=== PATIENT | female | born 1945 | race Caucasian/White ===

== ENCOUNTER 2020-03-08 20:06 | Emergency (ER) | payer MEDICARE, OTHER, SELFPAY ==
[2020-03-08 20:09] VITALS: BP 186/97; PULSE 78; RESP 17; TEMP 36.2; O2SAT 100
[2020-03-08 21:37] LABS: Basophils Absolute Auto 0.1 K/mm3 (0.0-0.1); Basophils Percent Auto 0.9 % (0.2-1.2); Eosinophils Absolute Auto 0.4 K/mm3 (0-0.3); Eosinophils Percent Auto 4.9 % (0-4.4); Hematocrit 37.2 % (37.0-47.0); Hemoglobin 11.8 g/dL (12.0-15.0); Immature Granulocyte Absolute 0.03 K/mm3 (0.00-0.031); Immature Granulocyte Percent A 0.4 % (0-0.5); Lymphocytes Absolute Auto 2.06 K/mm3 (0.9-3.2); Lymphocytes Percent Auto 26.4 % (18.3-44.2); Mean Corpuscular HGB Conc 31.7 g/dl (32-36); Mean Corpuscular Hemoglobin 27.7 pg (26-34); Mean Corpuscular Volume 87.3 fl (80-100); Mean Platelet Volume 10.6 fl (7.4-10.4); Monocytes Absolute Auto 0.5 K/mm3 (0.1-0.6); Monocytes Percent Auto 6.4 % (2.6-8.5); Neutrophils Absolute Auto 4.8 K/mm3 (1.3-6.7); Platelet Count Result 190 k/mm3 (150-375); Red Blood Count 4.26 M/mm3 (4.2-5.4); White Blood Count 7.8 K/mm3 (4.5-10.0)
[2020-03-08 21:44] LABS: INR 1.5; Prothrombin Time 18.1 Seconds (11.1-14.7)
[2020-03-08 21:45] LABS: Partial Thromboplastin Time 34.9 SECONDS (22.3-36.8)
[2020-03-08 21:50] LABS: Alanine Aminotransferase 19 U/L (4-35); Alkaline Phosphatase 114 U/L (38-126); Anion Gap 12.6 mmol/L (7-16); Aspartate Amino Transferase 26 U/L (14-36); Bilirubin,Total 0.1 mg/dL (0.2-1.3); Blood Urea Nitrogen 16 mg/dL (7-17); CRP 1.4 mg/dL (<1.0); Calcium 8.9 mg/dL (8.4-10.2); Carbon Dioxide 24 mmol/L (22-30); Chloride 106 mmol/L (98-107); Estimated CRCL calculation 53 ml/min; Estimated Glomerular Filt Rate > 60; Glucose 114 mg/dL (65-105); Potassium 4.6 mmol/L (3.4-5.0); Sodium 138 mmol/L (137-145)
--- NOTE | 2020-03-08 22:00 | ED.EXTPRO ---
HPI - Extremity Problem General Chief complaint: Extremity Problem,Nontraumatic Stated complaint: I think I have a blood clot in my leg. Time Seen by Provider: 03/08/20 20:18 Source: patient Mode of arrival: ambulatory Limitations: no limitations History of Present Illness HPI Narrative: This patient is a 74 year old female with history DVT, PE who presents for evaluation right foot swelling and redness. PAtient reports history of multiple surgeries to her right foot. She frequently has swelling to her right foot. This morning she noticed redness to her right leg and she noticed it had increased warmth. She states she is concerned she either has a DVT or cellulitis. She currently takes Xarelto 15 mg daily for history of DVt. She denies missing any doses. She denies chest pain or sob. Her PCP is . Related Data Home Medications Medication Instructions Recorded Confirmed furosemide 40 mg PO DAILY 06/28/19 06/28/19 gabapentin 300 mg PO HS 06/28/19 06/28/19 lovastatin 20 mg PO DAILY 06/28/19 06/28/19 metformin 1,000 mg PO BID 06/28/19 06/28/19 rivaroxaban [Xarelto] 20 mg PO DAILY 06/28/19 06/28/19 verapamil 180 mg PO DAILY 06/28/19 06/28/19 lansoprazole [Prevacid] 15 mg PO DAILY 03/08/20 Allergies Allergy/AdvReac Type Severity Reaction Status Date / Time No Known Allergies Allergy Verified 03/08/20 20:19 Review of Systems Review of Systems: All systems reviewed & are unremarkable except as noted in HPI and below Constitutional: Constitutional: Denies chills and Denies fever(s) Cardiovascular: Cardiovascular: Denies chest pain and Denies radiating jaw, neck or arm pain Respiratory: Respiratory: Denies cough and Denies dyspnea Gastrointestinal: Gastrointestinal: Denies abdominal pain and Denies nausea PMFSH Past Medical History Medical History Bunion of great toe Diabetes GERD (gastroesophageal reflux disease) HLD (hyperlipidemia) HTN (hypertension) with goal to be determined Neuropathy No pertinent family history Ovarian cyst Post-menopausal Surgical History Surgical History (Updated 07/03/19 @ 15:11 by DERIC Stout) Hx of cholecystectomy Status post right foot surgery Social History Social History (Updated 07/03/19 @ 15:11 by DERIC Stout) Smoking status: Never smoker Gender identity (if verbalized by the patient): Female Exam Const: General: no acute distress and alert Orientation/consciousness: patient oriented x3 Eyes: EOM: EOMs intact bilaterally Resp: Effort & Inspection: normal respiratory effort Skin: Other: right patchy redness to right lower leg anteriorlly Neuro: General: patient oriented x3 and moves all extremities Extrem: General: edema (right foot) Course Consultations Consultation #1: I notified Dr. Song electrical control assembler for Dr. Mares that patient will be getting outpatient venous doppler and results will be called to them Date: 03/08/20 Time: 22:37 Vital Signs Vital signs: Vital Signs Temperature 97.1 F L 03/08/20 20:09 Pulse Rate 78 03/08/20 20:09 Respiratory Rate 17 03/08/20 20:09 Blood Pressure 186/97 H 03/08/20 20:09 Pulse Oximetry 100 03/08/20 20:09 Temperature 97.1 F L 03/08/20 20:09 Pulse Rate 63 03/08/20 22:31 Respiratory Rate 18 03/08/20 22:31 Blood Pressure 173/84 H 03/08/20 22:31 Pulse Oximetry 99 03/08/20 22:31 MDM - Extremity (Nontraumatic) Lab Data Result diagrams: 03/08/20 21:29 03/08/20 21:29 Labs: Lab Results 03/08/20 03/08/20 03/08/20 Range/Units 21:29 21:29 21:29 WBC 7.8 (4.5-10.0) K/mm3 RBC 4.26 (4.2-5.4) M/mm3 Hgb 11.8 L (12.0-15.0) g/dL Hct 37.2 (37.0-47.0) % MCV 87.3 (80-100) fl MCH 27.7 (26-34) pg MCHC 31.7 L (32-36) g/dl RDW 14.0 (11.5-14.5) % Plt Count 190 (150-375) k/mm3 MPV 10.6 H (7.4-10.4) fl Immature Gran % (Auto) 0.4
[2020-03-08 22:31] VITALS: BP 173/84; PULSE 63; RESP 18; O2SAT 99
== END 2020-03-08 23:10 | disposition home or self-care (01) ==
PROVIDERS: Emergency Provider General Practice; PCP Internal Medicine Endocrinology, Diabetes & Metabolism
DX: L03.115 Cellulitis of right lower limb (principal); Z86.718 Personal history of other venous thrombosis and embolism; Z86.711 Personal history of pulmonary embolism; K21.9 Gastro-esophageal reflux disease without esophagitis; E78.5 Hyperlipidemia, unspecified; I10 Essential (primary) hypertension; E11.40 Type 2 diabetes mellitus with diabetic neuropathy, unspecified; Z79.01 Long term (current) use of anticoagulants; Z79.84 Long term (current) use of oral hypoglycemic drugs
CPT/HCPCS: 36415; 80053; 85025; 85610; 85730; 86140; 99283

== ENCOUNTER 2020-03-09 07:31 | Outpatient (CLI) | payer MEDICARE, OTHER, SELFPAY ==
--- NOTE | ~2020-03-09 | US_ITS ---
EXAMINATION: US venous doppler LE RT DATE: 03/09/2020 08:13 INDICATION: Right lower limb swelling TECHNIQUE: Head scale images without and with compression and Doppler images of the right lower extre mity veins were obtained. COMPARISON: 09/22/2018 FINDINGS: The right common femoral vein, profunda femoral vein, femoral vein, popliteal vein, peronea l trunk, posterior tibial veins, and greater saphenous vein are patent. IMPRESSION: 1. Patent right lower extremity veins. No evidence of deep venous thrombosis. Reviewed, dictated and finalized at location B.
== END 2020-03-09 07:32 | disposition home or self-care (01) ==
LOC: ANHIMG 07:39
PROVIDERS: PCP Internal Medicine Endocrinology, Diabetes & Metabolism; Visit Provider Internal Medicine Endocrinology, Diabetes & Metabolism
DX: M79.89 Other specified soft tissue disorders (principal)
CPT/HCPCS: 93971

== ENCOUNTER 2020-06-17 11:31 | Emergency (ER) | payer MEDICARE, OTHER, SELFPAY ==
--- NOTE | ~2020-06-17 | XR_ITS ---
EXAMINATION: XR ankle RT 2V DATE: 06/17/2020 12:05 INDICATION: Right ankle pain. TECHNIQUE: 2 views of right ankle were obtained. COMPARISON: Right ankle radiographs 06/28/2019 FINDINGS: Bone alignment is normal. Partially visualized is arthrodesis of first metatarsophalangeal joint with instrumentation. There is mild midfoot osteophytes. There are enthesophytes at the posteri or and plantar aspects of calcaneal tuberosity. Ankle soft tissue swelling is noted. IMPRESSION: 1. Mild midfoot osteoarthritis. Reviewed, dictated and finalized at location A. 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
[2020-06-17 11:46] VITALS: BP 139/64; PULSE 83; RESP 16; TEMP 37.2; O2SAT 99
--- NOTE | 2020-06-17 11:48 | ED.SKABFB ---
HPI - Skin/Abscess/Foreign Bdy General Chief complaint: Skin/Abscess/Foreign Body Stated complaint: Possible cellulitus Time Seen by Provider: 06/17/20 11:49 Source: patient Mode of arrival: ambulatory Limitations: no limitations History of Present Illness HPI narrative: Deja Sierra is a 74 yo female with a PMH of GERD, diabetes, anticoagulation, high cholesterol, a fib, who comes to express care for R ankle pain and suspected cellulitis and anterior tibia pain. Tripped on child gate 2 weeks ago and started throbbing yesterday. Reports redness also noticed yesterday Related Data Home Medications Medication Instructions Recorded Confirmed furosemide 40 mg PO DAILY 06/28/19 06/17/20 gabapentin 300 mg PO HS 06/28/19 06/17/20 lovastatin 20 mg PO DAILY 06/28/19 06/17/20 metformin 1,000 mg PO BID 06/28/19 06/17/20 rivaroxaban [Xarelto] 20 mg PO DAILY 06/28/19 06/17/20 verapamil 180 mg PO DAILY 06/28/19 06/17/20 lansoprazole [Prevacid] 15 mg PO DAILY 03/08/20 06/17/20 Allergies Allergy/AdvReac Type Severity Reaction Status Date / Time No Known Allergies Allergy Verified 06/17/20 11:41 Review of Systems Review of Systems: Narrative: CONSTITUTIONAL: Denies fever, chills, sweats. EYES: Denies visual changes, redness, discharge. ENT: Denies rhinorrhea, congestion, sore throat, otalgia. CARDIOVASCULAR: Denies chest pain, palpitations, edema. RESPIRATORY: Denies dyspnea, wheezing, cough GASTROINTESTINAL: Denies abdominal pain, nausea, vomiting, diarrhea. GENITOURINARY: Denies dysuria, hematuria, abnormal discharge SKIN: Denies rash or itching. NEUROLOGIC: Denies numbness, or focal weakness. PSYCHIATRIC: Denies anxiety or depression. R lower extremity point pain lower anterior tibia and redness to R lower leg ankle to knee PMFSH Past Medical History Medical History (Updated 06/17/20 @ 12:27 by Anahi Tinajero, [place]) Bunion of great toe Diabetes GERD (gastroesophageal reflux disease) HLD (hyperlipidemia) HTN (hypertension) with goal to be determined Neuropathy No pertinent family history Ovarian cyst Post-menopausal Surgical History Surgical History Hx of cholecystectomy Status post right foot surgery Social History Social History Smoking status: Never smoker Gender identity (if verbalized by the patient): Female Comments At time of signature, I agree with nursing past medical, surgical, social and family history. There is no relevant family history pertinent to the presenting complaint. Exam Narrative: Exam Narrative: GENERAL: This is a well-nourished, well-developed patient, in mild distress. HEAD: normocephalic, atraumatic. EYES: Sclera clear/white. Vision is grossly intact. EARS: External ears normal, Hearing grossly intact. NOSE: External nose normal without nasal discharge, nares without redness, no rhinorrhea. THROAT: Mucous membranes moist, NECK: Neck supple, CARDIOVASCULAR: Regular rate and rhythm without murmurs, gallops, or rubs. RESPIRATORY: Clear to auscultation. Breath sounds equal bilaterally. No wheezes, rales, or rhonchi. GASTROINTESTINAL: Abdomen soft, SKIN: warm, intact with skin erythema of R lowwer extremity, with mild edema of foot (possibly chronic), 2 + pedal pulses, sensation decreased in lower leg NEURO: awake, alert, and oriented to person, place and time. There were no obvious focal neurologic abnormalities. Steady gait EXTREMITIES: Normal range of motion. BACK: Nontender without deformity Course Course Emergency Course: Patient came to express care with right lower leg erythematous skin, swelling is occurred in the l ast day or 2 X-ray of right lower extremity/ankle: Bone alignment is normal there is arthrodesis of the first metatarsophalangeal joint with instrumentation.Midfoot osteophytes; enthesophytes at posterior and plantar aspect of calcaneal tuberosi
[2020-06-17 11:58] VITALS: BP 139/64; PULSE 83; RESP 16; TEMP 37.2; O2SAT 99
== END 2020-06-17 12:31 | disposition home or self-care (01) ==
PROVIDERS: Emergency Provider Nurse Practitioner; PCP Internal Medicine Endocrinology, Diabetes & Metabolism
DX: L03.115 Cellulitis of right lower limb (principal); K21.9 Gastro-esophageal reflux disease without esophagitis; E78.5 Hyperlipidemia, unspecified; I10 Essential (primary) hypertension; E11.40 Type 2 diabetes mellitus with diabetic neuropathy, unspecified
CPT/HCPCS: 73600; 99213; G0463

== ENCOUNTER 2023-04-26 13:22 | Emergency (ER) | payer MEDICARE, SELFPAY ==
--- NOTE | 2023-04-26 13:23 | ED.LOWEXIN ---
HPI - Extremity Injury (Lower) General Chief Complaint: Extremity Injury, Lower Stated Complaint: Right Foot Irritation Time Seen by Provider: 04/26/23 13:23 Source: patient Mode of arrival: ambulatory Limitations: no limitations History of Present Illness HPI Narrative: Patient is a 77-year-old female who presents with skin tear to right 2nd toe. Patient states she was wearing sandals at her grandson's soccer game and looked down did notice blood to shoe and foot. Patient states when she got home she noticed skin had been pulled off. Patient states she soaked foot in Epsom salt used antibiotic ointment and covered. States she is a diabetic and has neuropathy so has not had any pain. Denies any bleeding since initial injury. Denies any swelling or redness to toe or foot. Related Data Home Medications Medication Instructions Recorded Confirmed furosemide 40 mg tablet 40 mg PO DAILY 06/28/19 06/17/20 gabapentin 300 mg capsule 300 mg PO HS 06/28/19 06/17/20 lovastatin 20 mg tablet 20 mg PO DAILY 06/28/19 06/17/20 metformin 1,000 mg tablet 1,000 mg PO BID 06/28/19 06/17/20 rivaroxaban 20 mg tablet (Xarelto) 20 mg PO DAILY 06/28/19 06/17/20 verapamil 180 mg tablet,extended 180 mg PO DAILY 06/28/19 06/17/20 release omeprazole 20 mg capsule,delayed mg 04/26/23 04/26/23 release Allergies Allergy/AdvReac Type Severity Reaction Status Date / Time No Known Allergies Allergy Verified 04/26/23 13:32 Review of Systems Review of Systems: All systems reviewed & are unremarkable except as noted in HPI and below Constitutional: Constitutional: Denies body ache(s), Denies chills, Denies fatigue, Denies fever(s), Denies headache(s), Denies malaise and Denies weakness Eyes: Eyes: Denies blurry vision, Denies irritation and Denies loss of vision ENT: Denies otalgia, Denies headache(s), Denies nasal discharge, Denies sinus pain and Denies sore throat Cardiovascular: Cardiovascular: Denies chest pain, Denies irregular heart rhythm and Denies dyspnea Respiratory: Respiratory: Denies dyspnea Gastrointestinal: Gastrointestinal: Denies abdominal pain, Denies melena, Denies hematochezia, Denies diarrhea, Denies nausea and Denies vomiting Musculoskeletal: Musculoskeletal: Denies back pain, Denies myalgias and Denies arthralgias Integumentary/Breasts: Skin/Breast: Denies pruritus, Denies rash and Reports wounds Neurologic: Denies headache(s), Denies loss of vision and Denies weakness Psychiatric: Psychiatric: Reports no additional psychiatric complaints Endocrine: Endocrine: Denies fatigue PMFSH Past Medical History Medical History (Updated 04/26/23 @ 13:54 by Maru Summers APRN) Bunion of great toe Diabetes GERD (gastroesophageal reflux disease) HLD (hyperlipidemia) HTN (hypertension) with goal to be determined Neuropathy No pertinent family history Ovarian cyst Post-menopausal Surgical History Surgical History Hx of cholecystectomy Status post right foot surgery Social History Social History Smoking status: Never smoker Gender identity (if verbalized by the patient): Female Comments At time of signature, agree with nursing past medical, surgical, social and family history. There is no relevant family history pertinent to the presenting complaint. Exam Const: General: cooperative, healthy appearing, comfortable, no acute distress and well nourished Nutritional Appearance: well nourished Orientation/consciousness: patient oriented x3 Limitations: no limitations HENMT: Head: normal to inspection, normocephalic and atraumatic Ears: hearing grossly normal bilaterally and external ears normal Face/Nose/Sinus: Normal external nose present, normal facial exam and face symmetric Face and sinus: normal facial exam and face symmetric Mouth: Yes lip normal Eyes: General: appearance normal, both eye
[2023-04-26 13:32] VITALS: BP 135/72; PULSE 88; RESP 16; TEMP 36.4; O2SAT 100
[2023-04-26 13:33] VITALS: BP 135/72; PULSE 88; RESP 16; TEMP 36.4; O2SAT 100
== END 2023-04-26 13:59 | disposition home or self-care (01) ==
PROVIDERS: Emergency Provider Nurse Practitioner Family; PCP Internal Medicine Endocrinology, Diabetes & Metabolism
DX: S91.114A Laceration without foreign body of right lesser toe(s) without damage to nail, initial encounter (principal); X58.XXXA Exposure to other specified factors, initial encounter; K21.9 Gastro-esophageal reflux disease without esophagitis; E78.5 Hyperlipidemia, unspecified; I10 Essential (primary) hypertension; E11.40 Type 2 diabetes mellitus with diabetic neuropathy, unspecified
CPT/HCPCS: 99213; G0463

== ENCOUNTER 2023-11-16 15:01 | Emergency (ER) | payer MEDICARE, SELFPAY ==
--- NOTE | ~2023-11-16 | XR_ITS ---
EXAM: XR wrist RT min 3V DATE: 11/16/2023 15:43 HISTORY: fall, pain to distal radius . COMPARISON: None available. FINDINGS: Decreased mineralization. No fracture or dislocation. No lytic or blastic lesion. Scattere d degenerative changes, moderate at the trapeziometacarpal joint. No erosion or periosteal change. So ft tissues within normal limits. IMPRESSION: No acute osseous finding in the right wrist. Reviewed, dictated and finalized at location K.
--- NOTE | ~2023-11-16 | XR_ITS ---
EXAM: XR elbow RT min 3V DATE: 11/16/2023 15:43 HISTORY: fall today, pain laterally . COMPARISON: None available. FINDINGS: Normal mineralization. No fracture or dislocation. No lytic or blastic lesion. Mild degene rative change at the elbow joint. Mild medial and moderate lateral epicondylar enthesopathy. No erosi on or periosteal change. Mild anterior displacement of the anterior fat pad. IMPRESSION: Small joint effusion, may be secondary to degenerative change or occult radial head fract ure in a patient of this age. Reviewed, dictated and finalized at location K. IMPRESSION: Small joint effusion, may be secondary to degenerative change or oc cult radial head fracture in a patient of this age.
--- NOTE | ~2023-11-16 | XR_ITS ---
EXAM: XR knee RT min 4V DATE: 11/16/2023 15:43 HISTORY: fall today . COMPARISON: None available. FINDINGS: Decreased mineralization. No fracture or dislocation. No lytic or blastic lesion. Mild/mod erate tricompartmental knee arthritis, with chondrocalcinosis. Quadriceps and patellar enthesopathy N o erosion or periosteal change. Lateral soft tissue swelling. IMPRESSION: No acute osseous finding in the right knee. Reviewed, dictated and finalized at location K.
[2023-11-16 15:16] VITALS: BP 122/61; PULSE 70; RESP 16; TEMP 36.6; O2SAT 100
--- NOTE | 2023-11-16 15:31 | ED.FALL ---
HPI - Fall General Chief Complaint: Fall Stated Complaint: right wrist/arm pain,right knee swollen Time Seen by Provider: 11/16/23 15:19 Source: patient and RN notes reviewed Mode of arrival: ambulatory Limitations: no limitations History of Present Illness HPI Narrative: Patient presents today complaining of right wrist pain radiating to the elbow as well as right knee pain and swelling. Patient fell onto outstretched hands approximately 1.5 hours prior to arrival after tripping on some plants outside her home. She currently rates her pain 03/19. She does take Xarelto. She is up-to-date on her tetanus vaccine. Related Data Home Medications Medication Instructions Recorded Confirmed furosemide 40 mg tablet 40 mg PO DAILY 06/28/19 11/16/23 gabapentin 300 mg capsule 300 mg PO HS 06/28/19 11/16/23 lovastatin 20 mg tablet 20 mg PO DAILY 06/28/19 11/16/23 metformin 1,000 mg tablet 1,000 mg PO BID 06/28/19 11/16/23 rivaroxaban 20 mg tablet (Xarelto) 20 mg PO DAILY 06/28/19 11/16/23 verapamil 180 mg tablet,extended 180 mg PO DAILY 06/28/19 11/16/23 release omeprazole 20 mg capsule,delayed 20 mg PO DAILY 04/26/23 11/16/23 release Allergies Allergy/AdvReac Type Severity Reaction Status Date / Time No Known Allergies Allergy Verified 11/16/23 15:04 Review of Systems Review of Systems: CONSTITUTIONAL: Denies body aches, fever, chills, or sweats. EYES: Denies visual changes, redness, or discharge. ENT: Denies rhinorrhea, congestion, sore throat, or otalgia. CARDIOVASCULAR: Denies chest pain, palpitations, or edema. RESPIRATORY: Denies cough or dyspnea. GASTROINTESTINAL: Denies abdominal pain, nausea, vomiting, or diarrhea. GENITOURINARY: Denies dysuria or hematuria. SKIN: Denies rash, itching, or wounds. MUSCULOSKELETAL: + right wrist and elbow pain. Right knee pain NEUROLOGIC: Denies headache, numbness, tingling, or weakness. PSYCH: Denies depression or anxiety. [facility] Past Medical History Medical History (Updated 11/16/23 @ 16:16 by Oriana Morrow, [facility], ) Bunion of great toe Diabetes GERD (gastroesophageal reflux disease) HLD (hyperlipidemia) HTN (hypertension) with goal to be determined Neuropathy No pertinent family history Ovarian cyst Post-menopausal Surgical History Surgical History Hx of cholecystectomy Status post right foot surgery Social History Social History Smoking status: Never smoker Gender identity (if verbalized by the patient): Female Comments At time of signature, I have reviewed and agree with nursing past medical, surgical, social and family history unless otherwise noted. Please see nursing chart for further information. There is no relevant family history pertinent to the presenting complaint Exam Narrative: GENERAL: Well-appearing, well-nourished, and in no acute distress. HEAD: Normocephalic, atraumatic. EYES: EOMI. No redness or drainage. Conjunctivae normal. ENT: Mucous membranes pink and moist. NECK: Normal AROM. CHEST: No respiratory distress. EXTREMITIES: Right wrist: Tenderness to the distal radius. No tenderness to the ulna. No deformity, ecchymosis, or edema noted. Distal sensation intact. Capillary refill. Radial pulse normal. Pain with range of motion noted. Some mild tenderness to the lateral elbow as well. Tenderness and mild to moderate edema of the knee with superficial abrasions to the patella. Distal sensation intact. Capillary refill normal. Full range of motion with mild increased pain. SKIN: Warm, dry, no rash. Capillary refill normal. Normal skin turgor. NEURO: No focal deficits. Alert and oriented x3. Gait steady. PSYCH: Normal affect. No signs of depression or anxiety. Course Course Level of Care: Express Care Visit Vital Signs Vital signs: Vital Signs Temperature 97.9 F 11/16/23 1
== END 2023-11-16 16:20 | disposition home or self-care (01) ==
PROVIDERS: Emergency Provider Nurse Practitioner; PCP Internal Medicine Endocrinology, Diabetes & Metabolism
DX: S42.401A Unspecified fracture of lower end of right humerus, initial encounter for closed fracture (principal); S63.501A Unspecified sprain of right wrist, initial encounter; S80.01XA Contusion of right knee, initial encounter; W18.09XA Striking against other object with subsequent fall, initial encounter; K21.9 Gastro-esophageal reflux disease without esophagitis; E78.5 Hyperlipidemia, unspecified; I10 Essential (primary) hypertension; E11.40 Type 2 diabetes mellitus with diabetic neuropathy, unspecified
CPT/HCPCS: 29105; 73080; 73110; 73564; 99214; A4565; G0463

== ENCOUNTER 2023-11-22 09:53 | Emergency (ER) | payer MEDICARE, SELFPAY ==
[2023-11-22 10:32] VITALS: BP 143/75; PULSE 96; RESP 16; TEMP 36.4; O2SAT 100
--- NOTE | 2023-11-22 11:25 | ED.GENADULT ---
HPI - General Adult General Chief complaint: Skin/Abscess/Foreign Body Stated complaint: Right Knee Pain Source: patient Mode of arrival: ambulatory Limitations: no limitations History of Present Illness HPI narrative: Patient presents for evaluation of right knee pain and swelling. She was evaluated here on 11/16/2023 following a fall. She had x-rays performed at that time and right knee was negative for fracture. She followed up with Orthopedics for questionable occult fracture of the right elbow. Splint was removed at that time. She states she has bruising, pain, redness and swelling in the right knee. She has a hx of DVT and PE and is anticoagulated with xarelto. Denies any SOB. She rates pain in her right knee as anywhere between 7-05/19. She states she did not discuss this Dr Gomez at her follow up because her primary focus was on her right elbow. Related Data Home Medications Medication Instructions Recorded Confirmed furosemide 40 mg tablet 40 mg PO DAILY 06/28/19 11/22/23 gabapentin 300 mg capsule 300 mg PO HS 06/28/19 11/22/23 lovastatin 20 mg tablet 20 mg PO DAILY 06/28/19 11/22/23 metformin 1,000 mg tablet 1,000 mg PO BID 06/28/19 11/22/23 rivaroxaban 20 mg tablet (Xarelto) 20 mg PO DAILY 06/28/19 11/22/23 verapamil 180 mg tablet,extended 180 mg PO DAILY 06/28/19 11/22/23 release omeprazole 20 mg capsule,delayed 20 mg PO DAILY 04/26/23 11/22/23 release Allergies Allergy/AdvReac Type Severity Reaction Status Date / Time No Known Allergies Allergy Verified 11/22/23 10:10 Review of Systems Review of Systems: CONSTITUTIONAL: Denies fever, chills, or sweats. EYES: Denies visual changes, redness, or discharge. ENT: Denies rhinorrhea, congestion, sore throat, or otalgia. CARDIOVASCULAR: Denies chest pain, or palpitations. RESPIRATORY: Denies cough or dyspnea. GASTROINTESTINAL: Denies abdominal pain, nausea, vomiting, or diarrhea. GENITOURINARY: Denies dysuria or hematuria. SKIN: Reports abrasion to right knee. Reports redness to right knee MUSCULOSKELETAL: Reports right elbow and right knee pain. Reports swelling in RLE NEUROLOGIC: Denies headache, numbness, dizziness, or weakness. PSYCHIATRIC: Denies anxiety or depression. [facility] Past Medical History Medical History Bunion of great toe Contusion Diabetes DVT (deep venous thrombosis) GERD (gastroesophageal reflux disease) HLD (hyperlipidemia) HTN (hypertension) with goal to be determined Neuropathy No pertinent family history Ovarian cyst Post-menopausal Pulmonary embolism Surgical History Surgical History Hx of cholecystectomy Status post right foot surgery Family History Family History Mother Family history non-contributory Social History Social History Smoking status: Never smoker Substance use: never Gender identity (if verbalized by the patient): Female Sexual Orientation (if Verbalized by the Patient): Straight or Heterosexual Spiritual care concerns: No Exam Narrative: GENERAL: Well-appearing, well-nourished, and in no acute distress. HEAD: Normocephalic, atraumatic. EYES: PERRLA and EOMI. ENT: Nares clear, no rhinorrhea or epistaxis. Mucous membranes moist. Oropharynx without tonsillar hypertrophy exudate or other lesions. Bilateral TMs pearly arreola nonbulging NECK: Supple. No adenopathy or masses. No carotid bruits or JVD CHEST: Clear to auscultation. No respiratory distress. No wheezes rales or rhonchi HEART: Regular rate and rhythm. No murmur heard. Normal peripheral pulses. ABDOMEN: Soft, nontender, nondistended, normal active bowel sounds. EXTREMITIES: full range of motion of the right knee intact. No crepitus or deformity. There is tenderness in the ant
== END 2023-11-22 11:30 | disposition home or self-care (01) ==
PROVIDERS: Emergency Provider Nurse Practitioner; PCP Internal Medicine Endocrinology, Diabetes & Metabolism
DX: S80.01XA Contusion of right knee, initial encounter (principal); W19.XXXA Unspecified fall, initial encounter; Z86.718 Personal history of other venous thrombosis and embolism; Z86.711 Personal history of pulmonary embolism; E11.40 Type 2 diabetes mellitus with diabetic neuropathy, unspecified; K21.9 Gastro-esophageal reflux disease without esophagitis; I10 Essential (primary) hypertension; Z79.01 Long term (current) use of anticoagulants
CPT/HCPCS: 99213; G0463

== ENCOUNTER 2024-08-18 12:23 | Emergency (ER) | payer MEDICARE, SELFPAY ==
--- NOTE | ~2024-08-18 | XR_ITS ---
HISTORY: pain rt knee generalized x 4 days, no injury COMPARISON: 11/16/2023 TECHNIQUE: 4 views of the right knee were performed FINDINGS: No acute or subacute fracture. Medial and lateral tibiofemoral joint space narrowing is identified with chondrocalcinosis, unchanged from prior. No suprapatellar joint effusion is identified. The infrapatellar joint space is clear. Interval development of a lateral femoral notch sign on lateral view for which MRI examination of the knee is recommended. Typically, this size can represent a tear of the anterior cruciate ligament for which clinical correl ation is needed. IMPRESSION: No acute fracture. Deep lateral femoral notch sign for which MRI examination of the knee is recommended. Reviewed, dictated and finalized at location A. AL MANAGER IMPRESSION: No acute fracture. Deep lateral femoral notch sign for which MRI examination of the knee is recomm ended.
--- NOTE | 2024-08-18 12:26 | ED.LOWEXIN ---
HPI - Extremity Injury (Lower) General Chief Complaint: Extremity Problem,Nontraumatic Stated Complaint: Right Knee Pain Time Seen by Provider: 08/18/24 12:35 Source: patient, RN notes reviewed and old records reviewed Mode of arrival: ambulatory Limitations: no limitations History of Present Illness HPI Narrative: 78-year-old female presents to the [facility] with right knee pain since Thursday. Reports lower aspect of the knee tenderness, tibial plateau area. Patient has no bruising or swelling noted. Denies any injury. Has taken Tylenol Onset (ago): day(s) (4) Related Data Home Medications ?Medication ?Instructions ?Recorded ?Confirmed ?Last Taken ?Type furosemide 40 mg tablet 40 mg PO DAILY 06/28/19 11/22/23 Unknown History gabapentin 300 mg capsule 300 mg PO HS 06/28/19 11/22/23 Unknown History lovastatin 20 mg tablet 20 mg PO DAILY 06/28/19 11/22/23 Unknown History metformin 1,000 mg tablet 1,000 mg PO BID 06/28/19 11/22/23 Unknown History rivaroxaban 20 mg tablet (Xarelto) 20 mg PO DAILY 06/28/19 11/22/23 Unknown History verapamil 180 mg tablet,extended 180 mg PO DAILY 06/28/19 11/22/23 Unknown History release omeprazole 20 mg capsule,delayed 20 mg PO DAILY 04/26/23 11/22/23 Unknown History release clobetasol 0.05 % topical ointment topical 08/18/24 Unknown History ferrous sulfate 325 mg (65 mg mg PO 08/18/24 Unknown History iron) tablet,delayed release Allergies Allergy/AdvReac Type Severity Reaction Status Date / Time No Known Allergies Allergy Verified 11/22/23 10:10 Review of Systems Review of Systems: All systems reviewed & are unremarkable except as noted in HPI and below Constitutional: Constitutional: Reports no additional constitutional complaints ENT: Reports system reviewed and no additional complaints, except as documented Cardiovascular: Cardiovascular: Reports no additional cardiovascular complaints, Denies chest pain and Denies dyspnea Respiratory: Respiratory: Reports no additional respiratory complaints, Denies chest congestion, Denies cough and Denies dyspnea Musculoskeletal: Musculoskeletal: Reports as per HPI and Reports arthralgias (Right knee) Integumentary/Breasts: Skin/Breast: Reports system reviewed and no additional complaints, except as docu PMFSH Past Medical History Medical History Pulmonary embolism DVT (deep venous thrombosis) Contusion No pertinent family history Diabetes Bunion of great toe Neuropathy Post-menopausal Ovarian cyst GERD (gastroesophageal reflux disease) HTN (hypertension) with goal to be determined HLD (hyperlipidemia) Surgical History Surgical History Status post right foot surgery Hx of cholecystectomy Family History Family History Mother Family history non-contributory Social History Social History Smoking status: Never smoker Substance use: never Gender identity (if verbalized by the patient): Female Sexual Orientation (if Verbalized by the Patient): Straight or Heterosexual Spiritual care concerns: No Comments At the time of my signature, I reviewed and agree with the nursing past medical, surgical, social, and family history. There is no relevant family history pertinent to the patient complaint. Exam Const: General: cooperative, healthy appearing, comfortable, no acute distress, well developed, alert and well nourished Nutritional Appearance: well nourished Orientation/consciousness: patient oriented x3 Limitations: no limitations HENMT: Head: normal to inspection Eyes: General: appearance normal, both eyes and all related structures Alignment and Position: alignment normal Neck: Neck: normal visual inspection, full ROM, no lymphadenopathy and no meningeal signs Chest: Chest palpation & inspection: normal inspection of the chest Resp: Effort & Inspection: normal respiratory effort and able to speak in complete sentences Cardio: Rate: regular rate Skin: General skin exam: normal color and no rashes or lesions noted Neuro: General: patient oriented x3, gait normal, moves all extremities and no meningeal signs Cognition (Neuro): normal cognition Speech: normal speech Gait exam (Neuro): Normal gait present Extrem: General: normal to inspection, full ROM, capillary refill normal and normal gait Right lower extremity: full ROM, normal capillary refill and knee Details: tenderness Location: of the tibial tuberosity and normal ROM; no abrasions, no lacerations, no ecchymosis, no foreign bodies, no penetrating wound and no deformity Psych: Appearance: grossly normal and well kempt Mental Status: mental status grossly normal Speech and movement: Normal speech and movement present and Clear speech present Affect: normal affect Attitude: cooperative Course Course Level of Care: Express Care Visit Vital Signs Vital signs: Vital Signs Temperature 98.3 F 08/18/24 12:31 Pulse Rate 86 08/18/24 12:31 Respiratory Rate 16 08/18/24 12:31 Blood Pressure 153/76 H 08/18/24 12:31 Pulse Oximetry 100 08/18/24 12:31 Oxygen Delivery Room Air 08/18/24 12:31 Temperature 98.3 F 08/18/24 12:31 Pulse Rate 86 08/18/24 12:31 Respiratory Rate 16 08/18/24 12:31 Blood Pressure 153/76 H 08/18/24 12:31 Pulse Oximetry 100 08/18/24 12:31 Oxygen Delivery Room Air 08/18/24 12:31 Reviewed MDM - Extremity Injury (Lower) MDM Narrative Medical decision making narrative: Patient sitting comfortably in exam room. Nontoxic, vitals stable. Patient presents with 4 day history of right knee pain. Has seen Dr. Whitney in the past post injury. X-ray concerning for ACL injury, will refer to primary or Ortho for further evaluation. Patient appropriate for outpatient treatment and follow-up Discharge instructions reviewed with patient, as well as provided in writing per nursing staff. The instructions also include specific and strict return/GO TO THE ER as well as f/u information. All questions have been answered, and the patient deny any further questions with discharge and discharge plan. Some parts of this dictation were generated by voice recognition software and may contain typographical and/or grammatical inaccuracies. Differential Diagnosis Differential diagnosis: Likely other (Knee sprain, strain, fracture, ACL, MCL injury) Imaging Data Radiologist's impression: HISTORY: pain rt knee generalized x 4 days, no injury COMPARISON: 11/16/2023 TECHNIQUE: 4 views of the right knee were performed FINDINGS: No acute or subacute fracture. Medial and lateral tibiofemoral joint space narrowing is identified with chondrocalcinosis, unchanged from prior. No suprapatellar joint effusion is identified. The infrapatellar joint space is clear. Interval development of a lateral femoral notch sign on lateral view for which MRI examination of the knee is recommended. Typically, this size can represent a tear of the anterior cruciate ligament for which clinical correlation is needed. IMPRESSION: No acute fracture. Deep lateral femoral notch sign for which MRI examination of the knee is recommended. Critical Care Time Critical Care Time Critical Care Time: No Discharge Plan Discharge Clinical Impression: Acute pain of right knee Patient Disposition: Home, Self-Care Condition: Stable Instructions: Antibiotic Form, Knee Pain (ED) Additional Instructions: Today your blood pressure was 153/76. It is recommended that you follow-up with your primary care provider within 2 weeks to have this rechecked Your Xray did not show a fracture. Wear good supportive shoes at all times. Ice or heat should be applied to help manage pain. Use whichever feels better for you. It can be used for 20 to 30 minutes, every 2-3 hours while awake. Do not apply ice directly to your skin. A Knee brace can be purchased and worn for extra support Take Tylenol 650mg per package instructions as needed for pain Your x-ray showed an abnormality that is is recommended you follow-up with your orthopedic provider or your primary care provider for further old valuation and possible MRI. Please schedule a follow-up visit with your personal physician for further evaluation and treatment within 2 weeks especially if symptoms persist. For new or worsening symptoms go directly to the emergency room Patient Language: [place] Prescriptions: No Action furosemide 40 mg Tablet 40 mg PO DAILY verapamil 180 mg Tablet Extended Release 180 mg PO DAILY metformin 1,000 mg Tablet 1,000 mg PO BID gabapentin 300 mg Capsule 300 mg PO HS lovastatin 20 mg Tablet 20 mg PO DAILY Xarelto 20 mg Tablet 20 mg PO DAILY omeprazole 20 mg capsule,delayed release(DR/EC) 20 mg PO DAILY clobetasol 0.05 % ointment TOPICAL ferrous sulfate 325 mg (65 mg iron) tablet,delayed release (DR/EC) PO Follow-up/Referrals: Vishnu,Drew Desir MD [Primary Care Provider] - 1 Week (express care follow up ) Jarvis Gomez MD [Physician] - 1 Week (express care follow up ) Time of Disposition: 13:16
[2024-08-18 12:31] VITALS: BP 153/76; PULSE 86; RESP 16; TEMP 36.8; O2SAT 100
== END 2024-08-18 13:20 | disposition home or self-care (01) ==
PROVIDERS: Emergency Provider Nurse Practitioner; PCP Internal Medicine Endocrinology, Diabetes & Metabolism
DX: M25.561 Pain in right knee (principal); E11.40 Type 2 diabetes mellitus with diabetic neuropathy, unspecified; Z79.01 Long term (current) use of anticoagulants; I10 Essential (primary) hypertension; E78.5 Hyperlipidemia, unspecified; K21.9 Gastro-esophageal reflux disease without esophagitis; Z86.718 Personal history of other venous thrombosis and embolism; Z86.711 Personal history of pulmonary embolism; Z79.84 Long term (current) use of oral hypoglycemic drugs
CPT/HCPCS: 73564; 99213; G0463